=== PATIENT | female | born 1975 | race African-American/Black ===

== ENCOUNTER 2017-08-06 17:59 | Emergency (ER) | payer MEDICARE ==
[2017-08-06 19:17] LABS: #Eosinphils 0.1 thou/uL (0.0-0.7); #Lymphocytes 0.9 thou/uL (1.20-3.40); #Monocytes 0.5 thou/uL (0.11-0.59); #Neutrophils 10.1 thou/uL (1.40-6.50); %Basophils 0.3 % (0.0-1.0); %Eosinophils 0.4 % (0.0-10.0); %Lymphocytes 7.4 % (21.0-51.0); %Monocytes 4.5 % (0.0-10.0); %Neutrophils 87.4 % (42.0-75.0); Hemoglobin 11.9 g/dL (12.0-16.0); Mean Corpuscular HGB CONC 31.1 g/dL (32.0-36.0); Mean Corpuscular Hemoglobin 27.8 pg (27.0-31.0); Mean Corpuscular Volume 89.6 fl (81.0-99.0); Mean Platelet Volume 10.2 fL (7.4-10.4); Platelet Count 197 thou/uL (130-400); Red Blood Cell (RBC) Count 4.28 mill/uL (4.20-5.40); White Blood Cell (WBC) Count 11.6 thou/uL (4.8-10.8)
[2017-08-06 19:38] LABS: Anion Gap 15 mmol/L (10-20); BUN (Urea Nitrogen) 7 mg/dL (7.0-18.7); Calc. Creatinine Clearance 0 mL/min (70-130); Calcium 9.3 mg/dL (7.8-10.44); Carbon Dioxide 23 mmol/L (22-29); Chloride 102 mmol/L (98-107); Estimated GFR-MDRD Greater than 90; Glucose 160 mg/dL (70-105); Potassium 3.2 mmol/L (3.5-5.1); Sodium 137 mmol/L (136-145)
[2017-08-06 19:47] LABS: Bilirubin Negative (Negative); Blood, Urine Negative (Negative); Clarity CLEAR (Clear); Glucose, Urine (Dipstick) 250 mg/dL (Negative); Leukocyte Negative (Negative); Nitrite Negative (Negative); Protein, Urine (Dipstick) Trace mg/dL (Neg-Trace); Specific Gravity, Urine 1.018 (1.002-1.036)
[2017-08-06 19:48] LABS: Pregnancy Test - Urine (BHCG) Negative (Negative); Pregu Control Background? CLEAR/WHITE (CLR/WHITE); Pregu Control Bar Appear? YES (CONTROL BAR); Specific Gravity 1.018 (1.002-1.036)
[2017-08-06 19:56] LABS: Amphetamine Not Detected (NotDetected); Barbiturates Screen Not Detected (NotDetected); Benzodiazepine Screen Not Detected (NotDetected); Cocaine Metabolite Screen Not Detected (NotDetected); Medtox Control Line Valid? VALID (VALID); Medtox Reader # READER 4; Methadone Not Detected (NotDetected); Methamphetamine Not Detected (NotDetected); Opiate Screen Not Detected (NotDetected); Oxycodone Screen Not Detected (NotDetected); Phencyclidine (PCP) Not Detected (NotDetected); THC/Cannabinoid Screen Not Detected (NotDetected); Tricyclic Screen Not Detected (NotDetected)
--- NOTE | 2017-08-06 20:36 | CT ---
CT OF THE BRAIN WITHOUT CONTRAST 08/06/17 INDICATION: New onset seizures. COMPARISON: None. FINDINGS: No acute infarct, hemorrhage or hydrocephalus is present. The septum pellucidum and third ventricle a re midline. Mastoid air cells are clear. The visualized paranasal sinuses are clear. The skull is int act. IMPRESSION: No acute intracranial abnormality. POS: [facility]
== END 2017-08-06 20:27 | disposition home or self-care (01) ==
LOC: ERS 17:59
DX: G40.909 Epilepsy, unspecified, not intractable, without status epilepticus (principal); E87.6 Hypokalemia; J45.909 Unspecified asthma, uncomplicated; F41.9 Anxiety disorder, unspecified; F32.9 Major depressive disorder, single episode, unspecified; G30.9 Alzheimer's disease, unspecified; F02.80 Dementia in other diseases classified elsewhere, unspecified severity, without behavioral disturbance, psychotic disturbance, mood disturbance, and anxiety; Z79.899 Other long term (current) drug therapy
CPT/HCPCS: 36415; 51701; 70450; 80048; 80306; 81003; 81025; 85025; A4353

== ENCOUNTER 2018-01-11 11:31 | Outpatient (CLI) | payer MEDICARE ==
--- NOTE | 2018-01-11 14:42 | PET ---
PET CT BRAIN: HISTORY: A 42-year-old female with Alzheimer disease with early onset. CORRELATION: CT scan dated 08/06/2017. TECHNIQUE: A PET CT of the brain was performed following the intravenous administration of 7 millicuries of F18 fluorodeoxyglucose in the left antecubital fossa. FINDINGS: There is hypometabolism noted in the temporal, parietal, and frontal lobes bilaterally. IMPRESSION: Findings consistent with Alzheimer's disease. POS: [facility]
== END 2018-01-11 11:32 | disposition home or self-care (01) ==
LOC: PET 11:31
PROVIDERS: ATTEND Psychiatry & Neurology Neurology
DX: G30.0 Alzheimer's disease with early onset (principal)
CPT/HCPCS: 78608; A9552

== ENCOUNTER 2018-01-23 18:51 | Inpatient (IN) | payer MEDICARE ==
[2018-01-23 19:27] LABS: #Basophils 0.1 thou/uL (0.0-0.2); #Eosinphils 0.1 thou/uL (0.0-0.7); #Lymphocytes 1.5 thou/uL (1.20-3.40); #Monocytes 0.6 thou/uL (0.11-0.59); #Neutrophils 4.8 thou/uL (1.40-6.50); %Eosinophils 0.9 % (0.0-10.0); %Lymphocytes 21.1 % (21.0-51.0); %Monocytes 8.3 % (0.0-10.0); %Neutrophils 68.8 % (42.0-75.0); Hemoglobin 11.3 g/dL (12.0-16.0); Mean Corpuscular HGB CONC 32.3 g/dL (32.0-36.0); Mean Corpuscular Hemoglobin 29.7 pg (27.0-31.0); Mean Corpuscular Volume 91.9 fl (81.0-99.0); Mean Platelet Volume 9.7 fL (7.4-10.4); Platelet Count 191 thou/uL (130-400); RBC Distribution Width 14.6 % (11.5-14.5); Red Blood Cell (RBC) Count 3.81 mill/uL (4.20-5.40)
[2018-01-23 19:35] LABS: INR-International Normal Ratio 1.1; PTT 26.4 SEC (22.9-36.1); Prothrombin Time 13.9 SEC (12.0-14.7)
--- NOTE | 2018-01-23 19:43 | CT ---
HEAD CT WITHOUT CONTRAST: 01/23/2018 HISTORY: Alzheimer disease. Dementia. Altered mental status. COMPARISON: 01/11/2018 TECHNIQUE: Serial axial CT imaging at 5 mm intervals, from the vertex through the skull base, without contrast. FINDINGS: The imaged paranasal sinuses/mastoid air cells are well aerated. There is no displaced calvarial fra cture. There is prominent cerebral volume loss and associated prominence of the CSF containing space s for a patient of this age, a stable finding. No intracranial hemorrhage, midline shift, or mass ef fect is seen. IMPRESSION: Stable head CT, as described above. No intracranial hemorrhage. Results called to ordering physician at 7:12 p.m. on 01/23/2018. CODE CR POS: [facility]
[2018-01-23 19:46] LABS: ALT (SGPT) 9 U/L (8-55); AST (SGOT) 15 U/L (5-34); Albumin 3.9 g/dL (3.5-5.0); Alkaline Phosphatase 68 U/L (40-150); Anion Gap 12 mmol/L (10-20); BUN (Urea Nitrogen) 17 mg/dL (7.0-18.7); Bilirubin, Total 0.3 mg/dL (0.2-1.2); CK (CPK) 60 U/L (29-168); Calc. Creatinine Clearance 0 mL/min (70-130); Calcium 8.7 mg/dL (7.8-10.44); Carbon Dioxide 26 mmol/L (22-29); Chloride 109 mmol/L (98-107); Estimated GFR-MDRD Greater than 90; Globulin 2.7 g/dL (2.4-3.5); Glucose 121 mg/dL (70-105); Magnesium 1.8 mg/dL (1.6-2.6); Protein, Total 6.6 g/dL (6.0-8.3); Sodium 143 mmol/L (136-145)
[2018-01-23 19:49] LABS: CKMB 1.1 ng/mL (0-6.6); Troponin I Less than 0.010 ng/mL (< 0.028)
--- NOTE | 2018-01-23 20:21 | RAD ---
PORTABLE UPRIGHT FRONTAL CHEST RADIOGRAPH: 01/23/2018 HISTORY: Altered mental status. COMPARISON: None. FINDINGS: No pneumothorax, pleural fluid, focal consolidation, or alveolar edema. Heart and mediastinal contou rs are grossly unremarkable. IMPRESSION: No acute findings. POS: [facility]
[2018-01-23 21:06] LABS: Bilirubin Negative (Negative); Blood, Urine Negative (Negative); Clarity CLEAR (Clear); Glucose, Urine (Dipstick) Negative (Negative); Leukocyte Negative (Negative); Nitrite Negative (Negative); Protein, Urine (Dipstick) Negative (Neg-Trace); Specific Gravity, Urine 1.023 (1.002-1.036)
[2018-01-23] MEDS ORDERED: cefTRIAXone\\ROCEPHIN 2 GM VIAL ONE (21:20)
[2018-01-23] MEDS ORDERED: Dexamethasone 4 mg/ml Vial ONE (22:19)
[2018-01-23 22:54] LABS: Free T4 (Free Thyroxine) 1.09 ng/dL (0.70-1.48); Thyroid Stimulating Hormone 0.2881 uIU/mL (0.35-4.94)
[2018-01-23] MEDS ORDERED: Ondansetron ODT 4 MG TAB SL PRN (23:17)
[2018-01-23] MEDS ORDERED: Sodium Chloride 0.9% 1,000 ML IV SCH (23:17)
[2018-01-23] MEDS ORDERED: Ondansetron HCl/PF 4 MG/2 ML Vial IVP PRN (23:17)
[2018-01-23] MEDS ORDERED: Sodium Chloride 0.45% 1,000 ML IV SCH (23:30)
[2018-01-23] MEDS ORDERED: Acetaminophen 325 MG TAB PO PRN (23:47)
[2018-01-23] MEDS ORDERED: Ondansetron ODT 4 MG TAB PO PRN (23:47)
[2018-01-24 00:48] VITALS: BMI 16.0
--- NOTE | 2018-01-24 05:02 | HP ---
CHIEF COMPLAINT: Altered mental status. HISTORY OF PRESENT ILLNESS: This patient is a 42-year-old female, who unfortunately has severe early onset dementia consistent with Alzheimer's. The patient's sister and son with whom she lives are pr oviding the history. The patient currently lives at home and the family reports that her baseline me ntal status is usually up and walking all day. Today, the patient's son heard her making some noise and he went to evaluate her. At that time, he found her doing what he described as having left arm t witching. He states that when he touched her she stop twitching and interacted with him, but was try ing to get in one specific position, and she did not want to move. She was closing her eyes and did not want to open them. When her sister came home, she was basically the same. She was not wanting t o get up and walk or eat as she normally does. Therefore, the sister knew something was wrong, they brought her to the hospital. They were not aware of her having any fevers or chills, but states she always reports that she is cold. They are unaware of any specific other signs of infection. REVIEW OF SYSTEMS: Unobtainable from the patient herself, but the patient's family has not noted any specific issues. State she has been eating and drinking normally. She is moving and walking normal ly and the only change in her activity is that she tends not to use her left hand to eat as much as s he has in the past, favoring only the right hand, where in the past she would use both. PAST MEDICAL HISTORY: Notable for the dementia and one prior seizure. They report that after that s eizure the patient return to her normal mental status fairly quickly. PAST SURGICAL HISTORY: Denied. FAMILY HISTORY: Notable for CVAs, diabetes, hypertension, and early onset dementia in two of the edwin gottlieb's other siblings. SOCIAL HISTORY: Nonsmoker, nondrinker. She lives at home with her sister and son. Her PCP is Dr. Jaja mahajan. Her neurologist is Dr. Peck. She is a FULL CODE and she has a medical power of employment law attorney, which is her older sister. ALLERGIES: SULFA. CURRENT MEDICATIONS: Sertraline 50 mg p.o. q. day, alprazolam 1 mg q. day, and Keppra 500 mg p.o. b. i.d. PHYSICAL EXAMINATION: VITAL SIGNS: In the emergency department, initially the patient had a temperature of 94.8 rectally, most recent is over 97 orally. Blood pressure is 99/64, pulse 79, respirations 16, O2 sat 100% on ro om air. GENERAL APPEARANCE: The patient is age appropriate. She is not significantly interactive, although she will make eye contact and tends to constantly smile and laugh. She does vocalize, but does not m ruddy any coherent words. She is in no distress and appears quite comfortable. HEENT: Pupils are reactive. There is no obvious oropharyngeal lesions noted. NECK: Supple and symmetric without lymphadenopathy. CARDIOVASCULAR: Regular rate and rhythm with no murmurs, gallops or rubs. LUNGS: Clear to auscultation bilaterally. ABDOMEN: Flat, soft, nontender, nondistended, positive bowel sounds. EXTREMITIES: Warm and dry. NEUROLOGIC: The patient is not able to cooperate with an exam; however, she appears to be moving all of her extremities spontaneously. SKIN: Unremarkable. IMAGING: EKG shows sinus rhythm, 74. LABORATORY DATA: White count 7.0, hemoglobin 11, platelets 191. Coags normal. Chemistry is normal other than a chloride of 109, glucose of 121. Her BUN is 17, creatinine is 0.7. Lactic acid is 0.9. Liver function test is normal. TSH is 0.28 with a free T4 of 1.09, prolactin 16.13, cortisol 22. Urinalysis is negative. Chest x-ray is negative. Head CT negative. IMPRESSION AND PLAN: 1. Altered mental status. The patient has no overt evidence of infection, however, she was signific antly hypothermic. The patient is unable to give any history. It is covering her for possible under lying sepsis given the hypothermia. She received vancomycin and Rocephin in the emergency department . We will continue those for now. We will await cultures. We will also consult Neurology. It is p ossible the patient may have had an unwitnessed seizure and may have been somewhat postictal. 2. History of seizure disorder. The patient is on Keppra. We will continue with her usual regimen. 3. Early onset dementia. The patient has substantial and debilitating cognitive deficits, but this is her baseline.
[2018-01-24 06:00] LABS: Band 13 % (5-11); Hemoglobin 10.8 g/dL (12.0-16.0); Lymphocytes 11 % (21-51); MDiff Complete? YES; Mean Corpuscular HGB CONC 32.4 g/dL (32.0-36.0); Mean Corpuscular Hemoglobin 29.4 pg (27.0-31.0); Mean Corpuscular Volume 90.7 fl (81.0-99.0); Mean Platelet Volume 10.3 fL (7.4-10.4); Monocytes 1 % (0-10); Neutrophil 74 % (42-75); PLT Morphology Comment Appears Adequate; Platelet Count 193 thou/uL (130-400); RBC Distribution Width 14.4 % (11.5-14.5); Red Blood Cell (RBC) Count 3.69 mill/uL (4.20-5.40); White Blood Cell (WBC) Count 6.3 thou/uL (4.8-10.8)
[2018-01-24 06:24] LABS: ALT (SGPT) 9 U/L (8-55); AST (SGOT) 16 U/L (5-34); Albumin 3.8 g/dL (3.5-5.0); Alkaline Phosphatase 69 U/L (40-150); Anion Gap 11 mmol/L (10-20); BUN (Urea Nitrogen) 12 mg/dL (7.0-18.7); Bilirubin, Total 0.3 mg/dL (0.2-1.2); Calc. Creatinine Clearance 75 mL/min (70-130); Calcium 9.2 mg/dL (7.8-10.44); Carbon Dioxide 24 mmol/L (22-29); Chloride 108 mmol/L (98-107); Estimated GFR-MDRD Greater than 90; Globulin 2.8 g/dL (2.4-3.5); Glucose 119 mg/dL (70-105); Potassium 3.7 mmol/L (3.5-5.1); Protein, Total 6.6 g/dL (6.0-8.3); Sodium 139 mmol/L (136-145)
[2018-01-24] MEDS ORDERED: Vancomycin HCl 1 GM in Premix Bag 1 BAG IVPB SCH (09:00)
[2018-01-24] MEDS: Enoxaparin Sodium 40 MG/0.4 ML SYRINGE SC SCH (09:19)
[2018-01-24] MEDS: levETIRAcetam 500 MG TAB PO SCH ×2 (09:19→20:48)
[2018-01-24] MEDS: ALPRAZolam 1 MG TAB PO SCH (09:34)
--- NOTE | 2018-01-24 11:07 | PDOC.PN ---
- Subjective Encounter Start Date: 01/24/18 Encounter Start Time: 11:06 Ms. Morrissey was seen today in follow-up. She has advanced dementia from Alzheimer's disease, and is unable to voice her concerns. Her sister is at the bedside feeding her. She is awake and alert and smiling. Her sister described to me the events of yesterday. - Objective Resuscitation Status: Resuscitation Status FULL:Full Resuscitation MAR Reviewed: Yes Vital Signs & Weight: Vital Signs (12 hours) Temp Pulse Resp BP Pulse Ox 01/24/18 09:30 98.1 F 96 24 H 100 01/24/18 07:54 98.1 F 96 24 H 104/63 100 01/24/18 05:30 97.2 F L 88 16 111/85 99 01/23/18 23:20 97.5 F L 86 18 100 Weight Admit Weight 93 lb 8 oz Weight 93 lb 8 oz I&O: 01/23/18 01/24/18 01/25/18 06:59 06:59 06:59 Intake Total 1002 Balance 1002 Result Diagrams: 01/25/18 05:23 01/24/18 05:16 Phys Exam - Physical Examination HEENT: PERRLA, sclera anicteric Respiratory: no wheezing, no rales, no rhonchi, clear to auscultation bilateral Cardiovascular: RRR, no significant murmur, no rub Gastrointestinal: soft, non-tender, positive bowel sounds Musculoskeletal: no edema Dx/Plan (1) Altered mental status Code(s): R41.82 - ALTERED MENTAL STATUS, UNSPECIFIED Status: Acute (2) Alzheimer disease Code(s): G30.9 - ALZHEIMER'S DISEASE, UNSPECIFIED; F02.80 - DEMENTIA IN OTH DISEASES CLASSD ELSWHR W/O BEHAVRL DISTURB Status: Acute (3) Hypothyroidism Code(s): E03.9 - HYPOTHYROIDISM, UNSPECIFIED Status: Acute (4) Seizure disorder Code(s): G40.909 - EPILEPSY, UNSP, NOT INTRACTABLE, WITHOUT STATUS EPILEPTICUS Status: Acute - Plan * Altered Mental status- ? etiology- She was reported to be hypothermic yesterday- her temperature is normal today, and she appears to be back to her baseline mental function. Her serum cotisol screen was normal, as well as thyroid function tests. * She had some twitching yesterday, but her sister reports that this was not like her previous seizure where she had generalized tonic clonic type movement, and biting of her tongue- will ask for Neurology opinion * ? Infection- she does not have fever, or elevated WBC count- UA and CXR were normal- will discontinue antibiotics now, and await culture results, or other signs of infection
[2018-01-24] MEDS ORDERED: cefTRIAXone\\ROCEPHIN 1 GM in Sodium Chloride 0.9% 100 ML IVPB SCH (22:00)
--- NOTE | 2018-01-24 23:45 | CON ---
DATE OF CONSULTATION: 01/24/2018 REFERRING PHYSICIAN: Dr. Jose Proctor. REASON FOR CONSULTATION: Altered mental status, questionable seizure. HISTORY OF PRESENT ILLNESS: Ms. Morrissey is a 42-year-old, -[place] female, who has been con sulted for evaluation of altered mental status and possible seizure. History is obtained from salvatore ovalle's son, who was present at bedside. The patient's son reports that the patient has been diagnosed w ith early onset Alzheimer's type dementia about 5 years ago. She is currently dependent on all of he r activities. She had an episode yesterday in which she was having shaking in her left arm. He had put his on top of her shoulder and she was able to stop the jerking. She was able to carry on her ac tivities without any difficulty; however, she continued to have this intermittent episodes of jerking , which prompted them to bring her to the [facility]. She apparently has a history of seizure that resulted in admission to the hospital in the past and was started on Keppra for her sei zure episode. PAST MEDICAL HISTORY, PAST SURGICAL HISTORY, SOCIAL HISTORY, FAMILY HISTORY, CURRENT MEDICATIONS AND ALLERGIES: Could not be obtained. REVIEW OF SYSTEMS: Could not be obtained. PHYSICAL EXAMINATION: VITAL SIGNS: Blood pressure of 112/83, pulse of 97, temperature of 97.5, respirations of 16, O2 satu rations are 100% on room air. GENERAL: Well developed, well nourished, -[place] female, in no apparent distress. RESPIRATORY: Clear to auscultation bilaterally. CARDIOVASCULAR: Regular rate and rhythm. NEUROLOGIC: Mental status: The patient is awake and alert, but non-conversant and nonverbal. She i s not able to follow any simple commands. Speech and language, nonverbal. Cranial nerves: Pupils a re 3 mm and reactive. Visual ayala are full to threat. External muscles appear intact. Face appea rs symmetric. Tongue and uvula midline. Motor exam showed normal tone and bulk with spontaneous mov ement in both upper and lower extremities. Sensation: She withdraws to pain in both upper and lower extremities. Babinski: Plantar responses flexion bilaterally. Gait and Romberg coordination could not be tested. LABORATORY DATA: Labs I reviewed, which included CBC, urinalysis, Keppra level, coag panel, which is significant for hemoglobin of 10.8 and hematocrit of 33.5, TSH of 0.288, otherwise unremarkable. IMAGING STUDIES: CT head without contrast was reviewed, which showed no acute intracranial abnormali ty. IMPRESSION: 1. Left upper extremity jerking, likely nonepileptic in nature. 2. Altered mental status, likely encephalopathy. ASSESSMENT AND PLAN: Ms. Morrissey is a 42-year-old, -[place] female, who presented with the episode of left upper extremity twitching and jerking. Based on the description, this is less likely to be a seizure like episode. At this time, she is already on Keppra 500 mg b.i.d. which I have ask ed them to continue. I had a long discussion with the patient's son and explained that it is extreme ly unusual to have Alzheimer's type dementia to be diagnosed at 37 years of age. I have suspicion of the diagnosis, and thus, I have advised them that she needs to see a sick specialist care, who speci alizes in dementia. We will make a proper diagnosis of her mentation and confusion. Son states that he is content with current diagnosis and would not seek any further medical attention. There is no further neurologic workup needed from my standpoint. Thank you for consultation.
[2018-01-25 06:00] LABS: Eosinophils 3 % (0-10); Hemoglobin 10.5 g/dL (12.0-16.0); Lymphocytes 38 % (21-51); MDiff Complete? YES; Mean Corpuscular HGB CONC 32.8 g/dL (32.0-36.0); Mean Corpuscular Hemoglobin 29.5 pg (27.0-31.0); Mean Platelet Volume 9.7 fL (7.4-10.4); Monocytes 7 % (0-10); Neutrophil 52 % (42-75); PLT Morphology Comment Appears Adequate; Platelet Count 175 thou/uL (130-400); RBC Distribution Width 14.1 % (11.5-14.5); Red Blood Cell (RBC) Count 3.55 mill/uL (4.20-5.40); White Blood Cell (WBC) Count 5.2 thou/uL (4.8-10.8)
[2018-01-25] MEDS: levETIRAcetam 500 MG TAB PO SCH (08:09)
[2018-01-25] MEDS: Enoxaparin Sodium 40 MG/0.4 ML SYRINGE SC SCH (08:10)
[2018-01-25] MEDS: ALPRAZolam 1 MG TAB PO SCH (08:44)
--- NOTE | 2018-01-25 10:00 | PDOC.PN ---
- Subjective Encounter Start Date: 01/25/18 Encounter Start Time: 09:57 Ms. Morrissey was seen today in follow-up. She is back to her baseline mental status according to her son, who is at the bedside. She is unable to communicate her concerns. - Objective Resuscitation Status: Resuscitation Status FULL:Full Resuscitation MAR Reviewed: Yes Vital Signs & Weight: Vital Signs (12 hours) Temp Pulse Resp BP BP Pulse Ox 01/25/18 08:06 98.6 F 87 16 117/73 117/73 100 01/25/18 04:00 97.3 F L 93 18 152/78 H 98 01/25/18 00:00 18 Weight Admit Weight 93 lb 8 oz Weight 90 lb 6.4 oz I&O: 01/24/18 01/25/18 01/26/18 06:59 06:59 06:59 Intake Total 1002 240 Balance 1002 240 Result Diagrams: 01/25/18 05:23 01/24/18 05:16 Phys Exam - Physical Examination HEENT: PERRLA Respiratory: no wheezing, no rales, no rhonchi, clear to auscultation bilateral Cardiovascular: RRR, no significant murmur, no rub Gastrointestinal: soft, non-tender, positive bowel sounds Musculoskeletal: no edema Dx/Plan (1) Altered mental status Code(s): R41.82 - ALTERED MENTAL STATUS, UNSPECIFIED Status: Acute (2) Alzheimer disease Code(s): G30.9 - ALZHEIMER'S DISEASE, UNSPECIFIED; F02.80 - DEMENTIA IN OTH DISEASES CLASSD ELSWHR W/O BEHAVRL DISTURB Status: Acute (3) Hypothyroidism Code(s): E03.9 - HYPOTHYROIDISM, UNSPECIFIED Status: Acute (4) Seizure disorder Code(s): G40.909 - EPILEPSY, UNSP, NOT INTRACTABLE, WITHOUT STATUS EPILEPTICUS Status: Acute - Plan * Altered Mental Status- ? etiology * There has not been any fever overnight, and her WBC count is normal, cultures are negative. She is stable for discharge home today .
--- NOTE | 2018-01-25 11:39 | DIS ---
DATE OF ADMISSION: 01/23/2018 DATE OF DISCHARGE: 01/25/2018 PRIMARY CARE PHYSICIAN: Vaibhav Basurto M.D. DISCHARGE DISPOSITION: Home. PRIMARY DISCHARGE DIAGNOSES: 1. Altered mental status possibly related to dementia. 2. Dehydration. 3. Seizure disorder. 4. History of early onset Alzheimer's disease. DISCHARGE MEDICATIONS: Include sertraline 50 mg daily, Keppra 500 mg twice a day, Xanax 1 mg in the a.m. and 0.5 mg at bedtime as needed. CODE STATUS: FULL CODE. ALLERGIES: SULFA. PROCEDURES DONE DURING ADMISSION: The patient had a CT scan of the brain. There was no evidence of any intracranial hemorrhage. There was no evidence of any mass. There was no evidence of any ischem ic disease. HOSPITAL COURSE: Ms. Morrissey is a pleasant 42-year-old female who was admitted to the hospital afte r she was noted to be slightly altered from her baseline by her family. She was evaluated in the ER and there was no obvious source of a problem. CT scan was negative. No obvious signs of infection. The patient's family noted some twitching in her left arm which was transient and there was concern that she may have had a seizure. For this reason, Neurology was consulted and it was felt that this episode did not represent a seizure and to continue her Keppra. This was quite different from her pr evious seizure-like activity. There were no obvious signs of infection. Urinalysis was negative. C hest x-ray negative. Preliminary blood cultures after 24 hours were also negative and she was back t o her baseline level of functioning. It is unclear what caused that episode; however, she will be dis charged home as she is back to her baseline with close outpatient followup.
[2018-01-25 14:14] VITALS: BP 125/85; TEMP 97.9
== END 2018-01-25 14:16 | disposition home or self-care (01) | DRG 57 ==
LOC: ERS 18:51 → 2NO 23:00
PROVIDERS: ADMIT Internal Medicine; ATTEND Internal Medicine
DX: G30.0 Alzheimer's disease with early onset (principal); G40.909 Epilepsy, unspecified, not intractable, without status epilepticus; F02.80 Dementia in other diseases classified elsewhere, unspecified severity, without behavioral disturbance, psychotic disturbance, mood disturbance, and anxiety; E86.0 Dehydration; T68.XXXA Hypothermia, initial encounter
CPT/HCPCS: 36415; 36416; 51701; 70450; 71045; 80053; 80177; 81003; 82533; 82550; 82553; 83605; 83735; 84146; 84439; 84443; 84484; 85007; 85025; 85027; 85610; 85730; 87040; 87086; 90471; 90732; 93005; 94760; 96361; 96365; 96375; A4216; A4353; G0009; G8978-GO-CJ; G8979-GO-CJ; G8980-GO-CJ; J0696; J1100; J1650; J3370

== ENCOUNTER 2018-03-22 12:05 | Observation (INO) | payer MEDICARE ==
[2018-03-22 12:33] LABS: Hemoglobin 13.2 g/dL (12.0-16.0); Mean Corpuscular HGB CONC 32.5 g/dL (32.0-36.0); Mean Corpuscular Hemoglobin 29.6 pg (27.0-31.0); Mean Corpuscular Volume 91.1 fL (78.0-98.0); Mean Platelet Volume 9.9 fL (7.4-10.4); Platelet Count 225 thou/uL (130-400); Red Blood Cell (RBC) Count 4.45 mill/uL (4.20-5.40); White Blood Cell (WBC) Count 8.9 thou/uL (4.8-10.8)
[2018-03-22 12:53] LABS: Band 1 % (5-11); Eosinophils 1 % (0-10); Lymphocytes 48 % (21-51); MDiff Complete? YES; Monocytes 4 % (0-10); Neutrophil 46 % (42-75); PLT Morphology Comment Appears Adequate; RBC Morphology Normal
[2018-03-22 12:56] LABS: ALT (SGPT) 13 U/L (8-55); AST (SGOT) 18 U/L (5-34); Albumin 4.6 g/dL (3.5-5.0); Alkaline Phosphatase 84 U/L (40-150); Anion Gap 21 mmol/L (10-20); BUN (Urea Nitrogen) 11 mg/dL (7.0-18.7); Bilirubin, Total 0.4 mg/dL (0.2-1.2); Calc. Creatinine Clearance 0 mL/min (70-130); Calcium 9.3 mg/dL (7.8-10.44); Carbon Dioxide 18 mmol/L (22-29); Chloride 101 mmol/L (98-107); Estimated GFR-MDRD 88; Globulin 3.4 g/dL (2.4-3.5); Glucose 146 mg/dL (70-105); Sodium 137 mmol/L (136-145)
[2018-03-22 12:57] LABS: Acetaminophen Less than 6.0 mcg/mL (10.0-30.0); Alcohol Less than 10 mg/dL (Less than 10); Salicylate Less than 8.0 mg/dL (15.0-30.0)
--- NOTE | 2018-03-22 13:43 | CT ---
CT BRAIN NONCONTRAST: HISTORY: A 43-year-old female with seizure and altered mental status. FINDINGS: There is no midline shift or any other mass effect. There is no evidence of acute intracranial hemor rhage, large cortical infarct, or extraaxial fluid collection. The calvarium is intact. There is di ffuse brain parenchymal volume loss. There is no interval change since 01/23/18. There is mild ventr iculomegaly probably on an ex vacuo basis. IMPRESSION: 1. No acute intracranial findings. 2. Diffuse involutional changes of the brain, greater than typical for this age group. jn [] POS: [facility]
[2018-03-22 13:56] LABS: Bilirubin Negative (Negative); Blood, Urine Small (Negative); Clarity CLEAR (Clear); Glucose, Urine (Dipstick) Negative (Negative); Leukocyte Negative (Negative); Nitrite Negative (Negative); Protein, Urine (Dipstick) Negative (Neg-Trace); Specific Gravity, Urine 1.014 (1.002-1.036); Urobilinogen 0.2 mg/dL (0.2-1.0)
[2018-03-22 13:58] LABS: Bacteria/HPF None Seen HPF (None Seen); Hyaline Casts/LPF 0-3 HYALINE CAST LPF (0-3 Hyaline); Pathc Cast-AUWi Flag 0.29 (0-2.49); RBC/HPF 0-3 HPF (0-3); Squamous Epithelial 0-3 HPF (0-3); WBC/HPF 0-3 HPF (0-3)
[2018-03-22 14:05] LABS: Amphetamine Not Detected (NotDetected); Barbiturates Screen Not Detected (NotDetected); Benzodiazepine Screen Detected (NotDetected); Cocaine Metabolite Screen Not Detected (NotDetected); Medtox Control Line Valid? VALID (VALID); Medtox Reader # READER 4; Methadone Not Detected (NotDetected); Methamphetamine Not Detected (NotDetected); Opiate Screen Not Detected (NotDetected); Oxycodone Screen Not Detected (NotDetected); Phencyclidine (PCP) Not Detected (NotDetected); THC/Cannabinoid Screen Not Detected (NotDetected); Tricyclic Screen Not Detected (NotDetected)
[2018-03-22 16:14] LABS: Lactic Acid 2.5 mmol/L (0.5-2.2)
[2018-03-22] MEDS ORDERED: Lorazepam 2 MG/ML VIAL ONE (17:01)
[2018-03-22] MEDS ORDERED: levETIRAcetam 500 MG/100 ML PREMIX BAG ONE ×2 (17:10→17:21)
[2018-03-22] MEDS ORDERED: Acetaminophen 650 MG Suppository PR PRN (19:11)
[2018-03-22] MEDS ORDERED: Lorazepam 2 MG/ML VIAL SLOW IVP PRN (19:29)
[2018-03-22] MEDS: NS 0.9% w/ 20 MEQ KCL 1,000 ML/1,000 ML BAG IV SCH (20:59)
[2018-03-22] MEDS ORDERED: levETIRAcetam In NaCl (Iso-Os) 1,000 MG in Premix Bag 1 BAG IVPB SCH ×2 (21:00→23:59)
[2018-03-22 21:51] VITALS: BMI 15.5
[2018-03-22] MEDS: levETIRAcetam In NaCl (Iso-Os) 1,000 MG in Premix Bag 1 BAG IVPB SCH (23:52)
--- NOTE | 2018-03-23 00:48 | HP ---
DATE OF SERVICE: 03/22/2018 PRIMARY CARE PROVIDER: Dr. Vaibhav Basurto. HISTORY OF PRESENT ILLNESS: This is a 43-year-old female with history of early onset advanced dementia, epilepsy, who was brought to the emergency room by her son and nephew due to a witnessed seizure. They reported around noon today that they were driving and noticed a change in the patient - she was quiet when she is normally talkative. They turned around and saw her tensing up in her arms, consistent with her prior history of seizures. By the time they pulled over and laid her down, they said the episode was complete, lasting a few minutes. They noticed that she now has a tooth out of place, lower jaw incisor. In the emergency room, the patient also had a similar episode where she was tensed shaking at her arms as described as a generalized tonic-clonic seizure, lasting a few minutes for which she received IV lorazepam and IV Keppra loading. Her son has not noticed any change, specifically denies any fevers, nausea, vomiting, change in her p.o. intake. He administers all of her medications and states that she had not yet taken her morning dose of Keppra due to obligations this morning; however, she has not missed any of her other medicines. There have been no new medications. In discussion with her neurologist, Dr. Peck, he reports that she was seen a few days ago and her Keppra was increased to 750 mg b.i.d. in the outpatient setting. He didn't think there was enough time to reach steady state at the new dose. In the emergency room, the patient received 1 liter of normal saline, 40 mg of potassium, 2 mg of lorazepam IV, 1 gram of Keppra IV and Hospitalist called for admission. ALLERGIES TO MEDICATION: SULFA. CURRENT MEDICATIONS: Reconciled with the patient's son; 1. Sertraline 50 mg daily. 2. Keppra 500 mg b.i.d. 3. Alprazolam, per the discharge summary, it was 1 mg in the morning, 0.5 mg at night as her son she only receives the morning dose. PAST MEDICAL HISTORY: 1. Early onset advanced dementia, with current function is that she requires assistance with feeding, toileting, getting dressed. The patient is able to walk with assistance and talkative. 2. seizure disorder. HOSPITALIZATION: In January for dehydration and altered mental status. PAST SURGICAL HISTORY: . SOCIAL HISTORY: The patient is taking care of primarily by her son, her neurologist is Dr. Peck. No alcohol or tobacco. She is a FULL CODE and her medical power of biodiesel operations manager is confirmed with her son, which is her older sister, Yanira Morrissey. FAMILY HISTORY: Notable for early onset dementia. REVIEW OF SYSTEMS: Not obtainable from the patient and only as noted above from her son. PHYSICAL EXAMINATION: VITAL SIGNS: Blood pressure 114/77, pulse 91, respirations 16, temperature 97.6 , saturation 98% on room air. GENERAL: The patient is not responsive to exam. She is moving in the bed spontaneously. She is not in apparent distress. HEENT: Her pupils are equal and round. No scleral icterus. Her oral mucosa not visualized. She does have her right second incisor. Incisor is dislocated anteriorly, there is blood around it. NECK: Supple, nontender. LYMPHATICS: No palpable cervical or supraclavicular lymphadenopathy. LUNGS: Clear to auscultation bilateral. No audible wheezing, rhonchi, or rales. HEART: Normal S1, S2. Regular rate and rhythm. No audible murmurs. ABDOMEN: Soft with present bowel sounds. Nontender, nondistended. EXTREMITIES: No edema. NEUROLOGIC: Unable to adequately assess. She is moving both arms and legs. PSYCHIATRIC: Unable to assess. SKIN: No visible rashes. PINEDA FINDINGS AND TEST RESULTS: Her brain CT, no acute changes, diffuse involutional changes of the brain greater than typical for this age group. This was personally reviewed. LABORATORY DATA: 1. CBC: 8.9, 13.2, 40.6, 225. 2. Chemistry: 137, 3.0, 101, 18, 11, 0.86, 146. 3. LFTs negative. 4. Lactic acid initially 12.8 and 3 hours later 2.5. 5. Urine is negative, small blood, but 0-3 red blood cells. 6. Toxicology screen negative for salicylates, Tylenol, plasma alcohol. Only positive for benzodiazepine. 7. Keppra level is less than 2. IMPRESSION: 1. Breakthrough seizure in a patient with a known seizure disorder. 2. Advanced early onset dementia. 3. Hypokalemia. 4. Metabolic acidosis, mild. PLAN: 1. Observation status in the hospital. 2. Discussed with Dr. Peck, her neurologist by phone and will continue the IV Keppra at 1000 mg b.i.d. and transition to oral when patient is able to take it. 3. Lorazepam IV p.r.n. for seizure. 4. N.p.o. status until patient is alert. 5. Dental consult for the dislocated tooth. 6. If patient continues to have seizures on this dose of Keppra, we will need to consult Dr. Peck who is back personnel records clerk in [address] Palmer, the neurologist personnel records clerk tomorrow for any acute needs. 7. Continue her home sertraline when she is able to take p.o. 8. Potassium was replaced in the ER, we will continue IV fluids that contain potassium and recheck in the morning. 9. Deep venous thrombosis prophylaxis. We will use pneumatic compression devices. 10. Gastrointestinal prophylaxis not indicated. 11. Code status is FULL. Surrogate decision maker is her sister as noted above. 12. The patient is at high risk given age, comorbidities, and current presentation. 12. I have reviewed the plan of care with the patient's son and nephew. No questions or further needs at end of evaluation. [facility]
[2018-03-23 09:13] LABS: #Eosinphils 0.1 thou/uL (0.0-0.7); #Lymphocytes 1.6 thou/uL (1.20-3.40); #Monocytes 0.7 thou/uL (0.11-0.59); #Neutrophils 4.8 thou/uL (1.40-6.50); %Basophils 0.5 % (0.0-1.0); %Eosinophils 0.9 % (0.0-10.0); %Lymphocytes 22.2 % (21.0-51.0); %Monocytes 9.6 % (0.0-10.0); %Neutrophils 66.8 % (42.0-75.0); Hemoglobin 12.3 g/dL (12.0-16.0); Mean Corpuscular HGB CONC 32.6 g/dL (32.0-36.0); Mean Corpuscular Hemoglobin 29.5 pg (27.0-31.0); Mean Corpuscular Volume 90.5 fL (78.0-98.0); Mean Platelet Volume 9.8 fL (7.4-10.4); Platelet Count 143 thou/uL (130-400); RBC Distribution Width 13.9 % (11.5-14.5); Red Blood Cell (RBC) Count 4.17 mill/uL (4.20-5.40); White Blood Cell (WBC) Count 7.2 thou/uL (4.8-10.8)
[2018-03-23 09:15] LABS: Anion Gap 12 mmol/L (10-20); BUN (Urea Nitrogen) 5 mg/dL (7.0-18.7); Calc. Creatinine Clearance 71 mL/min (70-130); Carbon Dioxide 23 mmol/L (22-29); Chloride 104 mmol/L (98-107); Estimated GFR-MDRD Greater than 90; Glucose 75 mg/dL (70-105); Potassium 3.7 mmol/L (3.5-5.1); Sodium 135 mmol/L (136-145)
[2018-03-23] MEDS: NS 0.9% w/ 20 MEQ KCL 1,000 ML/1,000 ML BAG IV SCH ×2 (09:50→20:16)
[2018-03-23] MEDS: levETIRAcetam In NaCl (Iso-Os) 1,000 MG in Premix Bag 1 BAG IVPB SCH ×2 (12:07→23:31)
--- NOTE | 2018-03-23 15:47 | PDOC.PN ---
- Subjective Encounter Start Date: 03/23/18 Encounter Start Time: 07:00 Pt seen for followup re: seizures. Pt is currently nonverbal, unable to complete ROS. - Objective Resuscitation Status: Resuscitation Status FULL:Full Resuscitation MAR Reviewed: Yes Vital Signs & Weight: Vital Signs (12 hours) Temp Pulse Resp BP Pulse Ox 03/23/18 12:00 97.2 F L 84 16 113/82 100 03/23/18 08:45 97.2 F L 84 16 03/23/18 08:00 98.2 F 95 18 150/114 H 100 03/23/18 04:00 98.2 F 105 H 18 137/97 H 100 Weight Admit Weight 90 lb 3.2 oz Weight 90 lb 3.2 oz Result Diagrams: 03/23/18 08:50 03/23/18 08:50 EKG Reviewed by me: Yes (Tele: NSR) Phys Exam - Physical Examination appears malnourished HEENT: moist MMs Neck: supple Respiratory: clear to auscultation bilateral Cardiovascular: RRR Gastrointestinal: soft Neurological: moves all 4 limbs Deviation from normal: Lethargic Dx/Plan (1) Acute encephalopathy Code(s): G93.40 - ENCEPHALOPATHY, UNSPECIFIED Status: Acute Comment: likely due to seizures (2) Seizures Code(s): R56.9 - UNSPECIFIED CONVULSIONS Status: Acute Comment: Keppra dose increased, observe (3) Alzheimer disease Code(s): G30.9 - ALZHEIMER'S DISEASE, UNSPECIFIED; F02.80 - DEMENTIA IN OTH DISEASES CLASSD ELSWHR W/O BEHAVRL DISTURB Status: Chronic Comment: cognitive deficits complicated by seizures (4) Hypothyroidism Code(s): E03.9 - HYPOTHYROIDISM, UNSPECIFIED Status: Chronic Comment: continue synthroid - Plan * . Review of Systems - Medications/Allergies Allergies/Adverse Reactions: Allergies Allergy/AdvReac Type Severity Reaction Status Date / Time Sulfa (Sulfonamide Allergy Verified 01/23/18 23:16 Antibiotics) Medications: Current Medications Acetaminophen (Tylenol) 650 mg WI Q4H PRN PRN Reason: Headache/Fever or Pain Potassium Chloride/Sodium Chloride (Ns 0.9% W/ 20 Meq Kcl) 1,000 ml in 1,000 mls @ 100 mls/hr IV .Q10H LY Last Admin: 03/23/18 09:50 Dose: 1,000 mls Levetiracetam 1,000 mg/ Device 100 mls @ 200 mls/hr IVPB 1200,2359 LY Last Admin: 03/23/18 12:07 Dose: 100 mls Lorazepam (Ativan) 1 mg SLOW IVP Q4H PRN PRN Reason: Seizures Sodium Chloride (Flush - Normal Saline) 10 ml IVF Q12HR LY Last Admin: 03/23/18 09:55 Dose: 10 ml Sodium Chloride (Flush - Normal Saline) 10 ml IVF PRN PRN PRN Reason: Saline Flush
[2018-03-24] MEDS: NS 0.9% w/ 20 MEQ KCL 1,000 ML/1,000 ML BAG IV SCH (08:36)
[2018-03-24] MEDS ORDERED: levETIRAcetam 500 MG TAB PO SCH ×2 (09:30→21:00)
--- NOTE | 2018-03-24 10:59 | DIS ---
PRIMARY CARE PHYSICIAN: Dr. Vaibhav Basurto DATE OF ADMISSION: 03/22/2018 DATE OF DISCHARGE: 03/24/2018 DISCHARGE DIAGNOSIS: Seizures. CONDITION OF PATIENT ON THE DAY OF DISCHARGE: Stable. I assessed Ms. Morrissey on the day of dischar ge. She is awake and alert, denies any chest pain. VITAL SIGNS: Stable. CARDIOVASCULAR: S1 and S2 are heard, regular. LUNGS: Clear to auscultation bilaterally. DISCHARGE MEDICATIONS: Keppra dose has been increased to 1000 mg 2 times a day, Xanax 0.5 mg at bedt zaida as needed, sertraline 50 mg daily, and Xanax 1 mg daily. HOSPITAL COURSE: Ms. Morrissey is a pleasant 43-year-old lady who was admitted to [facility] on 03/22/2018 for seizures. Please refer Dr. Ward's history and physical note dated 03/22/2018 for further details. After discussion with her neurologist, Keppra dose was increased to 1000 mg 2 times a day. There were no further seizures. She is being discharged home in a stable co ndition. She is advised to follow up with her neurologist as well as with her primary care provider. Many thanks for allowing me to participate in your patient's care. Please feel free to contact me wi th any questions or concerns. DISCHARGE DESTINATION: Home.
[2018-03-24 11:28] VITALS: BP 128/104; TEMP 97.6
== END 2018-03-24 15:44 | disposition home or self-care (01) ==
LOC: ERS 12:05 → 2SE 19:33
PROVIDERS: ADMIT Family Medicine; ATTEND Family Medicine
DX: G40.909 Epilepsy, unspecified, not intractable, without status epilepticus (principal); G30.9 Alzheimer's disease, unspecified; F02.80 Dementia in other diseases classified elsewhere, unspecified severity, without behavioral disturbance, psychotic disturbance, mood disturbance, and anxiety; E87.6 Hypokalemia; E87.2 Acidosis; G93.40 Encephalopathy, unspecified; E03.9 Hypothyroidism, unspecified; Z79.899 Other long term (current) drug therapy; Z88.2 Allergy status to sulfonamides
CPT/HCPCS: 51701; 70450; 80048; 80053; 80177; 80306; 80307; 83605; 85025 ×2; 96361 ×4; 96365; 96366 ×2; 96375; 99285; G0378 ×2; 36415; 81003; 81015; A4216; A4353; J1953; J2060

== ENCOUNTER 2018-04-29 16:54 | Emergency (ER) | payer MEDICARE ==
[2018-04-29] MEDS ORDERED: levETIRAcetam 500 MG/100 ML PREMIX BAG ONE (17:19)
[2018-04-29 17:55] LABS: #Lymphocytes 0.8 thou/uL (1.20-3.40); #Monocytes 0.3 thou/uL (0.11-0.59); %Basophils 0.1 % (0.0-1.0); %Eosinophils 0.3 % (0.0-10.0); %Lymphocytes 11.7 % (21.0-51.0); %Monocytes 4.2 % (0.0-10.0); %Neutrophils 83.7 % (42.0-75.0); Mean Corpuscular HGB CONC 31.9 g/dL (32.0-36.0); Mean Corpuscular Hemoglobin 29.4 pg (27.0-31.0); Mean Corpuscular Volume 92.3 fL (78.0-98.0); Mean Platelet Volume 10.3 fL (7.4-10.4); Platelet Count 182 thou/uL (130-400); RBC Distribution Width 14.2 % (11.5-14.5); Red Blood Cell (RBC) Count 4.43 mill/uL (4.20-5.40); White Blood Cell (WBC) Count 7.1 thou/uL (4.8-10.8)
--- NOTE | 2018-04-29 18:06 | CT ---
CT OF BRAIN PERFORMED WITHOUT CONTRAST ENHANCEMENT: 04/29/18 HISTORY: Seizure. History of dementia. COMPARISON: 03/22/18 study. There is generalized ventricular and sulcal prominence for age similar to the prior exam. There is no signs of intracerebral hemorrhage or extra-axial fluid collections. The mastoid air cells and visual ized sinuses are clear. IMPRESSION: No acute intracranial abnormalities. POS: [facility]
[2018-04-29 18:16] LABS: ALT (SGPT) 8 U/L (8-55); AST (SGOT) 18 U/L (5-34); Albumin 4.2 g/dL (3.5-5.0); Alkaline Phosphatase 75 U/L (40-150); Anion Gap 15 mmol/L (10-20); BUN (Urea Nitrogen) 17 mg/dL (7.0-18.7); Bilirubin, Total 0.3 mg/dL (0.2-1.2); Calc. Creatinine Clearance 0 mL/min (70-130); Calcium 9.4 mg/dL (7.8-10.44); Carbon Dioxide 21 mmol/L (22-29); Chloride 108 mmol/L (98-107); Estimated GFR-MDRD Greater than 90; Globulin 3.1 g/dL (2.4-3.5); Glucose 105 mg/dL (70-105); Potassium 3.5 mmol/L (3.5-5.1); Protein, Total 7.3 g/dL (6.0-8.3); Sodium 140 mmol/L (136-145)
--- NOTE | 2018-04-29 18:30 | CT ---
CT OF CERVICAL SPINE PERFORMED WITHOUT CONTRAST ENHANCEMENT: 04/29/18 HISTORY: Neck pain status post seizure. The vertebral bodies are normal in height. There is some minimal degenerative changes at the C6-7 lev el. The facets are in normal alignment. There is no evidence of canal or foraminal narrowing. There i s no CT evidence of fracture. IMPRESSION: No acute findings of the cervical spine. POS: [facility]
== END 2018-04-29 18:55 | disposition home or self-care (01) ==
LOC: ERS 16:54
DX: R56.9 Unspecified convulsions (principal); J45.909 Unspecified asthma, uncomplicated; G30.9 Alzheimer's disease, unspecified; F02.80 Dementia in other diseases classified elsewhere, unspecified severity, without behavioral disturbance, psychotic disturbance, mood disturbance, and anxiety; F32.9 Major depressive disorder, single episode, unspecified; Z79.899 Other long term (current) drug therapy; Z91.19 Patient's noncompliance with other medical treatment and regimen
CPT/HCPCS: 36415; 70450; 72125; 80053; 80177; 85025; 96365; J1953

== ENCOUNTER 2018-12-27 16:50 | Emergency (ER) | payer MEDICARE ==
[2018-12-27 17:41] LABS: #Basophils 0.1 thou/uL (0.0-0.2); #Lymphocytes 1.3 thou/uL (1.20-3.40); #Monocytes 0.2 thou/uL (0.11-0.59); #Neutrophils 2.7 thou/uL (1.40-6.50); %Basophils 1.3 % (0.0-1.0); %Eosinophils 0.7 % (0.0-10.0); %Lymphocytes 30.4 % (21.0-51.0); %Monocytes 3.5 % (0.0-10.0); %Neutrophils 64.1 % (42.0-75.0); Hemoglobin 13.8 g/dL (12.0-16.0); Mean Corpuscular HGB CONC 33.8 g/dL (32.0-36.0); Mean Corpuscular Hemoglobin 30.9 pg (27.0-31.0); Mean Corpuscular Volume 91.5 fL (78.0-98.0); Mean Platelet Volume 10.4 fL (7.4-10.4); Platelet Count 156 thou/uL (130-400); RBC Distribution Width 13.2 % (11.5-14.5); Red Blood Cell (RBC) Count 4.47 mill/uL (4.20-5.40); White Blood Cell (WBC) Count 4.3 thou/uL (4.8-10.8)
[2018-12-27] MEDS ORDERED: levETIRAcetam In NaCl (Iso-Os) 1,000 MG in Premix Bag 1 BAG IVPB SCH (17:45)
[2018-12-27 18:06] LABS: ALT (SGPT) 22 U/L (8-55); AST (SGOT) 25 U/L (5-34); Albumin 3.9 g/dL (3.5-5.0); Alkaline Phosphatase 74 U/L (40-150); Anion Gap 15 mmol/L (10-20); BUN (Urea Nitrogen) 19 mg/dL (7.0-18.7); Bilirubin, Total 0.5 mg/dL (0.2-1.2); Calc. Creatinine Clearance 0 mL/min (70-130); Calcium 9.5 mg/dL (7.8-10.44); Carbon Dioxide 29 mmol/L (22-29); Chloride 102 mmol/L (98-107); Estimated GFR-MDRD 88; Globulin 3.1 g/dL (2.4-3.5); Glucose 84 mg/dL (70-105); Potassium 3.1 mmol/L (3.5-5.1); Sodium 143 mmol/L (136-145)
== END 2018-12-27 19:35 | disposition home or self-care (01) ==
LOC: ERS 16:50
DX: G40.909 Epilepsy, unspecified, not intractable, without status epilepticus (principal); R89.2 Abnormal level of other drugs, medicaments and biological substances in specimens from other organs, systems and tissues; G30.9 Alzheimer's disease, unspecified; F02.80 Dementia in other diseases classified elsewhere, unspecified severity, without behavioral disturbance, psychotic disturbance, mood disturbance, and anxiety
CPT/HCPCS: 36415; 80053; 80177; 85025; 93005; 96365; J1953